=== PATIENT | male | born 2000 | race Caucasian/White ===

== ENCOUNTER 2021-01-14 04:14 | Emergency (ER) | payer OTHER ==
[2021-01-14 04:45] VITALS: TEMP 97.6; BMI 24.0
[2021-01-14] MEDS ORDERED: LORazepam 1 MG TABLET PO ONE (05:06)
[2021-01-14] MEDS ORDERED: METOCLOPRAMIDE HCL INJECTION 10 MG/2 ML VIAL IM ONE (05:07)
[2021-01-14] MEDS ORDERED: METOCLOPRAMIDE HCL INJECTION 10 MG/2 ML VIAL ONE (05:32)
[2021-01-14] MEDS ORDERED: LORazepam 1 MG TABLET ONE (05:33)
[2021-01-14 07:32] VITALS: BP 128/77; PULSE 70
== END 2021-01-14 07:32 | disposition home or self-care (01) ==
LOC: JER 04:14
PROC: 3E023GC Introduction of Other Therapeutic Substance into Muscle, Percutaneous Approach (ICD-10-PCS; principal; 2021-01-14)
DX: R11.0 Nausea (principal); F41.9 Anxiety disorder, unspecified
CPT/HCPCS: 93005; 93010; 99284-25